=== PATIENT | male | born 1945 ===

== ENCOUNTER 2019-02-23 09:12 | Outpatient (CLI) | payer OTHER | END 2019-02-23 10:23 | disposition home or self-care (01) | LOC: TOM 09:12 | DX: D11.0 Benign neoplasm of parotid gland (principal) ==

== ENCOUNTER 2019-02-28 09:53 | Outpatient (CLI) | payer OTHER | END 2019-02-28 10:13 | disposition home or self-care (01) | LOC: SONOGRAMA 09:53 | DX: C07 Malignant neoplasm of parotid gland (principal) ==